=== PATIENT | male | born 1980 | race Caucasian/White ===

== ENCOUNTER → 2019-06-20 | Outpatient (CLI) | payer OTHER ==
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
== END | disposition home or self-care (01) ==
CPT/HCPCS: 99211

== ENCOUNTER → 2019-06-30 | Outpatient (CLI) | payer OTHER ==
--- NOTE | 2019-07-03 08:16 | MR ---
EXAMINATION TYPE: MR lumbar spine wo con DATE OF EXAM: 06/30/2019 COMPARISON: None at this institution. HISTORY: Lumbar radiculopathy, RLE pain/numbness per order. Pain for 6 months extending into both low er extremities per patient. TECHNIQUE: Multiplanar, multisequence imaging of the lumbar spine is performed without IV contrast. FINDINGS: Sagittal images of the lumbar spine show vertebral body heights and alignment to appear sat isfactory. There is disc desiccation with posterior annular tear L5-S1 level otherwise disc space hei ghts and hydration are maintained. The conus medullaris is normal in position and signal ending infe rior L1 level. There is small hemangiomas at S2 level sagittal image 8. Axial images show the T12-L1, L1-L2, L2-L3, and L3-L4 levels also appear within normal limits. Axial images at L4-L5 level shows mild facet degenerative changes bilaterally. Axial images at the L5-S1 level shows mild facet degenerative changes with central disc protrusion bu t spinal canal is preserved. Bilateral neural foramina are patent. No suspicious incidental retroperitoneal findings. IMPRESSION: Mild degenerative changes lower lumbar spine, note is made of annular tear and small cent ral disc protrusion L5-S1 level. No large disc herniation identified to account for patient's bilater al radiculopathy type symptoms however.
== END | disposition home or self-care (01) ==
LOC: RADMRIMAIN 14:47
PROVIDERS: ATTEND Anesthesiology
DX: M51.17 Intervertebral disc disorders with radiculopathy, lumbosacral region (principal); M47.26 Other spondylosis with radiculopathy, lumbar region
CPT/HCPCS: 72148

== ENCOUNTER → 2019-07-06 | Outpatient (CLI) | payer OTHER ==
[2019-07-06 14:10] VITALS: BP 115/72; PULSE 63; RESP 18
--- NOTE | 2019-07-06 19:07 | P.PAINPG ---
Subjective Progress Note Date: 07/06/19 This is a follow-up visit for this 39 years old male, with a chronic history of severe low back pain, with radiation to the posterior aspect of his thighs and calf,, patient came in for follow-up visit and to discuss the results of the MRI of the lumbar spine that was done recently, and MRI report was reviewed and it showed that patient had L4 5 and L5-S1 lumbar facet degeneration and he had central disc protrusion at L5-S1, patient denies any motor or sensory deficit, he is able to ambulate without difficulty, he denies any fever or night sweats, he denies any change in the bowel movement or urination, he continued to use baclofen 20 mg every 8 hours Neurontin 600 mg 3 times a day and ibuprofen 800 mg 3 times a day, prescription given by his primary care he denies any side effects from the medication, he doesn't show any sign of intoxication Objective - Vital Signs Vital signs: Vital Signs Temp Pulse 63 07/06/19 14:06 Resp 18 07/06/19 14:06 BP 115/72 07/06/19 14:06 Pulse Ox 98 07/06/19 14:06 Intake & Output 07/05/19 07/06/19 07/06/19 18:59 06:59 18:59 Weight 77.111 kg - Exam Physical Examinations : -Constitutiona : Cooperative , not in acute distress . -HEENT : nech : supple , no Lymphadenopathy , normal thyroid size . eyes : no ptosis , no icterus, no photophobia . - neurologic : Cranial nerve II to XII intact , no focal neurological deffecit . -psychatric : alert , oriented X 3 , appropriate affect , intact judgment and insight . -Lymphatic : no Lymphadenopathy . - musculoskeltal : Lumber spine moter stegnth lower extremities ,thigh and legs 5/5 Right side , 5/5 Left side deep tendon reflexes : normal Knee Jerk , normal ankle Jerk positive lumber facet Loading Test Range of motion of the lumbar spine Flexion 30 degrees, extension 10 degrees strait leg raising test , positive at 60 Fabere test positive RT , and positive LT . Sever tenderness over the Sacroiliac joint on the R and L sides MRI of the lumbar spine= L4 5 and L5-S1 facet joint degeneration and L5-S1 lumbar bulging disc disease , without any canal stenosis Assessment and Plan Plan: Assessment and plan= chronic low back pain secondary to lumbar spondylosis with lumbar facet arthropathy without myelopathy, and lumbar degenerative disc disease, the clinical picture, direct tumors that most of the pain is coming from the facetogenic component, for this reason we will schedule patient to have diagnostic medial branch block lumbar area , L3 , L4, L5 bilaterally (to target the facet joint at the L4 5 and L5-S1 ) procedure risk and benefits and alternatives discussed with the patient and he agreed with the preceding Time with Patient: Less than 30 PQRS Measure Charge Sheet Measure #130: Documentation of Current Meds in Medical Chart: Patient's medications documented in chart Measure #226: Tobacco Use: Screen & Cessation Intervention: Pt screened for tobacco use AND intervention given Measure #111: Pneumonia Vaccination: Pneumococcal vaccine NOT administered or previously given Measure #47: Advance Care Plan: Advance care planning discussed & documented, pt chose/unable to give Measure #412: Opioid Treatment Agreement: No documentation of signed opioid treatment agreement Measure #408: Opioid Therapy Follow-up Evaluation: Patient had NO f/u eval minimum every 3 months during opioid therapy Measure #317: Preventitive Care & Scrn High Bld Press & F/U: Normal blood pressure, f/u not required Measure #128: Body Mass Index (BMI) Screening & Follow-up: BMI documented within normal parameters Measure #131: Pain Assessment & Follow-up: Pain positive & plan documented, Follow-up scheduled Measure #431: Unhealthy Alcohol Use Preventative Care & Scrn: Patient not identified as an unhealthy alcohol user PQRS Narrative: Smoking Status Current every day smoker Blood Pressure 115/72 Pain Intensity [Bilateral 9 Lower Back] Scale Used Numeric (1 - 10) Hx Alcohol Use (MH) No Home Medications: Ambulatory Orders Amitriptyline HCl 10 mg PO BID 06/15/19 Atorvastatin [Lipitor] 10 mg PO DAILY 06/15/19 Baclofen [Lioresal] 20 mg PO TID 06/15/19 Beclomethasone Dipropionate [Qvar 80 mcg] 1 puff INHALATION DAILY 06/15/19 Cariprazine HCl [Vraylar] 6 mg PO DAILY 06/15/19 Cholecalciferol [Vitamin D3 (25 Mcg = 1000 Iu)] 1,000 unit PO DAILY 06/15/19 FLUoxetine HCL [PROzac] 20 mg PO DAILY 06/15/19 Gabapentin 600 mg PO TID 06/15/19 Ibuprofen 800 mg PO TID 06/15/19 Omeprazole [PriLOSEC] 20 mg PO AC-BRKFST 06/15/19 Umeclidinium [place] [Incruse Ellipta] 1 puff INHALATION DAILY 06/15/19 Controlled Substance Measures - Controlled Substance Measures Is patient prescribed a controlled substance at discharge?: No
== END | disposition home or self-care (01) ==
LOC: PNWHC3 13:56
PROVIDERS: ATTEND Specialist
DX: G89.29 Other chronic pain (principal); M51.36 Other intervertebral disc degeneration, lumbar region; M47.816 Spondylosis without myelopathy or radiculopathy, lumbar region; M46.96 Unspecified inflammatory spondylopathy, lumbar region; M51.27 Other intervertebral disc displacement, lumbosacral region; F17.200 Nicotine dependence, unspecified, uncomplicated; Z79.899 Other long term (current) drug therapy
CPT/HCPCS: 99211

== ENCOUNTER 2019-07-18 09:41 | Day surgery (SDC) | payer OTHER ==
[2019-07-13 14:42] VITALS: BMI 20.5
[~2019-07-18 09:41] MED LIST: LACTATED RINGERS 1,000 ML IV SCH
[2019-07-18 10:38] VITALS: RESP 16; TEMP 97.2
--- NOTE | 2019-07-18 11:43 | P.PCN ---
Date of Procedure: 07/18/19 Procedure(s) Performed: PREOPERATIVE DIAGNOSIS : 1- Lumbar spondylosis with Facet Arthropathy without myelopathy . 2- Lumber degenerative disc disease POSTOPERATIVE DIAGNOSIS: 1- Lumbar spondylosis with Facet Arthropathy without myelopathy . 2- Lumber degenerative disc disease PROCEDURE: Diagnostic bilateral L3 , L4 , and L5 medial branch block under fluoroscopy guidance(fluoroscopy images available in the radiology Department ) (To block the facet joint at L4 5 , and L5-S1 level ) ANESTHESIA: Local with Ropivacain 0.5 % 6 ml , moderate sedation with intravenous Versed 1 mg and Fentanyl 50 mcg. EBL: Minimal COMPLICATION: None. IV FLUIDS: 100 mL of normal saline. PROCEDURE INDICATION: Chronic low back pain secondary to Facet arthropathy unresponsive to conservative treatment. PROCEDURE DESCRIPTION: the patient was seen and identified in the preop holding area , risks and benefits and possible complications of the procedure and alternative were discussed with the patient, and the patient agreed to proceed with the procedure and signed the consent IV was started and vital signs monitored during the procedure and fluoroscopy was used to maximize the benefit and accuracy of the needle placement, and sedation was given to decrease patient anxiety, patient was taken to the procedure room and placed in prone position vital signs monitored in the back prepped with chlorhexidine X3 then under strict sterile technique using a right oblique fluoroscopy ,the junction of the transverse process and the superior articulating process of the right L3 , L4 , and L5 vertebra which corresponding to the fluoroscopy image of the eye of the Jermaine dog on the block side for the medial branches and subsequently , after local infiltration of skin and subcu tissuies with Ropivacaine 0.5 % , one mL at each level ,then 22-gauge Quincke-type needles , 3 needle was used , each one of them placed at the junction of the base of the transverse process and the superior articular process at the appropriate level, and the needle was advanced until the periosteum contacted, needle placement confirmed with AP oblique and lateral view and after appropriate needle placement confirmed, and after negative aspiration for heme and CSF and there was no paresthesia 1-1/2 mL of Ropivacaine 0.5% mixed with 20 mg Depo-Medrol , then half mL injected at each level after negative aspiration the needle subsequently removed and the same procedure repeated for the left side at left side at L3 , L4 , and L5 At the end of the procedure and the needles removed and a bandage applied after the skin was cleaned the cleaning solution patient taken to recovery room in stable condition and monitors in the recovery room for 20-30 minutes and discharged home in stable condition after discharge criteria met and patient will follow up with the pain clinic in 2-4 weeks
[2019-07-18] MEDS ORDERED: LACTATED RINGERS 1,000 ML IV ONE (11:45)
--- NOTE | 2019-07-18 11:56 | FL ---
EXAMINATION TYPE: FL guided pain mgmt statistic DATE OF EXAM: 07/18/2019 CLINICAL HISTORY: Low back pain. TECHNIQUE: Fluoroscopy. COMPARISON: None. FINDINGS: Fluoroscopic guidance was provided during pain relief procedure performed by Dr. Anaya . A total of 9 seconds of fluoroscopic time was utilized during the procedure and 4 spot images are acquired. Images acquired shows needle localization at several levels in the bilateral lower lumbar spine. IMPRESSION: As Above.
[2019-07-18 12:05] VITALS: BP 106/61; PULSE 78
== END 2019-07-18 12:15 | disposition home or self-care (01) ==
LOC: ORPAIN 09:41
PROVIDERS: ATTEND Specialist
DX: G89.29 Other chronic pain (principal); M47.816 Spondylosis without myelopathy or radiculopathy, lumbar region; M51.36 Other intervertebral disc degeneration, lumbar region; M51.16 Intervertebral disc disorders with radiculopathy, lumbar region; F17.200 Nicotine dependence, unspecified, uncomplicated; Z79.51 Long term (current) use of inhaled steroids; Z79.1 Long term (current) use of non-steroidal anti-inflammatories (NSAID); Z79.899 Other long term (current) drug therapy
CPT/HCPCS: 64493; 64494; J2250; J1030; J3010

== ENCOUNTER 2019-08-01 07:18 | Day surgery (SDC) | payer OTHER ==
[2019-07-28 13:07] VITALS: BMI 20.5
[2019-08-01 08:15] VITALS: TEMP 98.1
--- NOTE | 2019-08-01 09:12 | P.PCN ---
Date of Procedure: 08/01/19 Procedure(s) Performed: PREOPERATIVE DIAGNOSIS : 1- Lumbar spondylosis with Facet Arthropathy without myelopathy . 2- Lumber degenerative disc disease POSTOPERATIVE DIAGNOSIS: 1- Lumbar spondylosis with Facet Arthropathy without myelopathy . 2- Lumber degenerative disc disease PROCEDURE: Diagnostic bilateral L3 , L4 , and L5 medial branch block under fluoroscopy guidance(fluoroscopy images available in the radiology Department ) #2nd (To block the facet joint at L4- 5 , and L5-S1 level ) ANESTHESIA: Local with Ropivacain 0.5 % 6 ml , moderate sedation with intravenous Versed 1 mg and Fentanyl 50 mcg. EBL: Minimal COMPLICATION: None. IV FLUIDS: 100 mL of normal saline. PROCEDURE INDICATION: Chronic low back pain secondary to Facet arthropathy unresponsive to conservative treatment. PROCEDURE DESCRIPTION: the patient was seen and identified in the preop holding area , risks and benefits and possible complications of the procedure and alternative were discussed with the patient, and the patient agreed to proceed with the procedure and signed the consent IV was started and vital signs monitored during the procedure and fluoroscopy was used to maximize the benefit and accuracy of the needle placement, and sedation was given to decrease patient anxiety, patient was taken to the procedure room and placed in prone position vital signs monitored in the back prepped with chlorhexidine X3 then under strict sterile technique using a right oblique fluoroscopy ,the junction of the transverse process and the superior articulating process of the right L3 , L4 , and L5 vertebra which corresponding to the fluoroscopy image of the eye of the Jermaine dog on the block side for the medial branches and subsequently , after local infiltration of skin and subcu tissuies with Ropivacaine 0.5 % , one mL at each level ,then 25-gauge Quincke-type needles , 3 needle was used , each one of them placed at the junction of the base of the transverse process and the superior articular process at the appropriate level, and the needle was advanced until the periosteum contacted, needle placement confirmed with AP oblique and lateral view and after appropriate needle placement confirmed, and after negative aspiration for heme and CSF and there was no paresthesia 1-1/2 mL of Ropivacaine 0.5% mixed with 20 mg Depo-Medrol , then half mL injected at each level after negative aspiration the needle subsequently removed and the same procedure repeated for the left side at left side at L3 , L4 , and L5 At the end of the procedure and the needles removed and a bandage applied after the skin was cleaned the cleaning solution patient taken to recovery room in stable condition and monitors in the recovery room for 20-30 minutes and discharged home in stable condition after discharge criteria met and patient will follow up with the pain clinic in 2-4 weeks
[2019-08-01 09:21] VITALS: RESP 18
[2019-08-01] MEDS ORDERED: IV FLUID CONTINUATION 425 ML IV ONE (09:22)
[2019-08-01 09:36] VITALS: BP 109/75; PULSE 70
--- NOTE | 2019-08-01 13:01 | FL ---
EXAMINATION TYPE: FL guided pain mgmt statistic DATE OF EXAM: 08/01/2019 FLUOROSCOPY Fluoroscopy time of 9 seconds was used during bilateral needle placement for lumbar spine pain manage ment. 4 image/s document/s the procedure.
== END 2019-08-01 09:50 | disposition home or self-care (01) ==
LOC: ORPAIN 07:18
PROVIDERS: ATTEND Specialist
DX: G89.29 Other chronic pain (principal); M47.816 Spondylosis without myelopathy or radiculopathy, lumbar region; M51.36 Other intervertebral disc degeneration, lumbar region
CPT/HCPCS: 64493; 64494; J2250; J1030; J3010; 99152

== ENCOUNTER → 2019-08-15 | Outpatient (CLI) | payer OTHER ==
[2019-08-15 13:44] VITALS: BP 127/79; PULSE 63; RESP 16
--- NOTE | 2019-08-15 14:09 | P.PN ---
Subjective Progress Note Date: 08/15/19 This is a 39-year-old gentleman with history of chronic lower back pain which did not respond to 2 lumbar medial branch blocks. His pain radiates down his left leg to the left foot with numbness on the bottom of his left foot. He takes and Neurontin 600 mg once a day. His pain has been increasing lately. Patient denies new-onset weakness, bowel/bladder incontinence, or any other signs or symptoms of cauda equina syndrome. There are no signs of acute intoxication, and no indications of medication diversion or overuse. In addition to above, 13-point review of systems is also negative for chest pain, shortness of breath, changes in vision, changes in hearing, new onset weakness, abdominal pain, diarrhea, extreme fatigue, malaise, fever, skin changes, homicidal or suicidal ideation, or bowel or bladder incontinence. Vital Signs: Reviewed in EMR Gen: AAOx3, NAD HEENT: PERRLA,hearing grossly normal Pulm: resp unlabored Heart: Regular Neck: supple, trachea midline Neuro exam of the lower extremities: Within normal limits Straight leg raising test: Negative on the left side Fran's test: Range of motion of the lumbar spine: Facet loading test: Tenderness in the paravertebral musculature: Positive tenderness in the lumbar area Neuro: CN II-XII grossly intact, Imaging: Reviewed in EMR/chart Assessment: Left lumbar radiculopathy Lumbar spondylosis without myelopathy Plan: 1. Explanation: Opioid and psychological risk scores were reviewed. Diagnoses, prognoses, and multiple treatment options including but not limited to physical therapy, interventional therapies, adjuvant medical therapies, narcotic medication therapies, and surgery were discussed with the patient and all questions were answered to the patient's satisfaction. 2. Opioid agreement: No opioids were prescribed 3. Counseling: The patient was counseled extensively on SMOKING CESSATION, BODY MASS INDEX, EXERCISE. Specifically, the patient was instructed regarding the importance of smoking cessation, obesity, and exercise in the context of both chronic pain and overall health. 4. Procedures: Scheduled for lumbar epidural steroid injection under fluoroscopic guidance at the L4 5 level in the left paramedian approach 5. Consultations: None 6. Investigations: None 7. Medications: Increase Neurontin to 600 mg twice a day. I'll give him prescription for 30 pills and then his primary care physician will continue with that. 8. Disposition: 9. Maps were reviewed and were appropriate. Objective - Vital Signs Vital signs: Vital Signs Temp Pulse 63 08/15/19 13:37 Resp 16 08/15/19 13:37 BP 127/79 08/15/19 13:37 Pulse Ox
== END ==
LOC: PNWHC3 12:55
PROVIDERS: ATTEND Anesthesiology
DX: M47.26 Other spondylosis with radiculopathy, lumbar region (principal); Z79.899 Other long term (current) drug therapy
CPT/HCPCS: 99211

== ENCOUNTER 2019-08-22 09:33 | Day surgery (SDC) | payer OTHER ==
[2019-08-17 15:09] VITALS: BMI 20.5
[2019-08-22 10:09] VITALS: RESP 16; TEMP 97.7
--- NOTE | 2019-08-22 11:31 | P.PCN ---
Date of Procedure: 08/22/19 Procedure(s) Performed: PREOPERATIVE DIAGNOSIS: 1- Lumbar radiculopathy 2-Lumbar spondylosis with Facet arthropathy without myelopathy POSTOPERATIVE DIAGNOSIS: 1-Lumber radiculopathy 2-Lumbar spondylosis with Facet arthropathy without myelopathy PROCEDURE 1. Lumbar epidural steroid injection under fluoroscopic guidance at the L4-5 level. (left paramedian ) (Fluoroscopy imaging was available in radiology department) 2. Lumbar epidurogram. ANESTHESIA: Local with 1% lidocaine 3 ml and , moderate sedation with intravenous Versed 2 mg ,and fentanyle 50 Mcg EBL: Minimal PROCEDURE INDICATION: The patient with low back pain and radiculitis symptoms unresponsive to conservative treatment. Fluoroscopy was used to optimize visualization of the needle placement and to maximize safety. PROCEDURE DESCRIPTION / TECHNIQUE: The patient was seen and identified in the preoperative area. Risks, benefits, complications including but not limited to infections ,bleeding ,allergic reaction to the medications ,nerve damage and not complete pain releife , and alternatives were discussed with the patient. The patient agreed to proceed with the procedure and signed the consent. IV was started, and vital signs were stable. Patient was taken to the OR and time out was completed. The patient was placed in the prone position on procedure table and a pillow was placed under the abdomen to reduce lumbar lordosis. The lumbosacral area was prepped and draped in the usual sterile fashion.ere closely monitored during the procedure. Conscious sedation was used during the procedure to decrease patients anxiety. Vital signs was monitered during the entire procedure. Using anterior-posterior fluoroscopy, the L4-5 interlaminar space was identified and the skin over this site was marked and then infiltrated with 1% lidocaine subcutaneously. Subsequently, a 20-gauge Tuohy epidural needle was inserted and advanced toward the epidural space using the ``Loss of resistance technique and guided by AP and lateral fluoroscopy. The correct needle position in the epidural space was verified with the injection of 2 mL of the water soluble contrast dye Isovue 200 contrast and observing an excellent epidurogram with the epidural spread of the dye, after negative aspiration for blood and CSF and in the absence of paresthesias. Again after negative aspiration, a 6 ml mixture containing 80 mg of Depo-medrol , and 2 ml of preservative free Normal Saline, and 2 ml of preservative free lidocaine 1% solution was injected and a washout of epidurogram was seen. Needle was withdrawn intact, skin was cleansed, and bandages were applied. COMPLICATIONS: None DISPOSITION / PLANS: The patient was placed in a supine position and transferred to the recovery area in a stable condition for observation. There was no evidence of lower extremity motor or sensory deficit after the procedure. Patient was discharged from the recovery room after meeting discharge criteria. Home discharge instructions were given to the patient by the staff. The patient was reexamined prior to discharge. The patient will schedule a follow up in the clinic in 2-4 weeks.
[2019-08-22] MEDS ORDERED: [UNRECOGNIZED DRUG - REMARK] IV ONE (11:37)
[2019-08-22 12:03] VITALS: BP 126/71; PULSE 79
--- NOTE | 2019-08-22 12:47 | FL ---
EXAMINATION TYPE: FL guided pain mgmt statistic DATE OF EXAM: 08/22/2019 CLINICAL HISTORY: Low back pain. TECHNIQUE: Fluoroscopy. COMPARISON: None. FINDINGS: Fluoroscopic guidance was provided during pain relief procedure performed by Dr. Anaya . A total of 1 seconds of fluoroscopic time was utilized during the procedure and 1 spot image was a cquired. Images acquired shows needle localization over the lumbar spine. IMPRESSION: As Above.
== END 2019-08-22 12:15 | disposition home or self-care (01) ==
LOC: ORPAIN 09:33
PROVIDERS: ATTEND Specialist
DX: M47.26 Other spondylosis with radiculopathy, lumbar region (principal); Z88.4 Allergy status to anesthetic agent
CPT/HCPCS: 62323; J2250; J1030; J3010; Q9966

== ENCOUNTER 2019-09-06 07:30 | Day surgery (SDC) | payer OTHER ==
[2019-09-02 10:05] VITALS: BMI 21.4
[2019-09-06 08:31] VITALS: RESP 16; TEMP 97.6
--- NOTE | 2019-09-06 09:44 | P.PCN ---
Date of Procedure: 09/06/19 Procedure(s) Performed: PREOPERATIVE DIAGNOSIS: 1- Lumbar radiculopathy 2-Lumbar spondylosis with Facet arthropathy without myelopathy POSTOPERATIVE DIAGNOSIS: 1-Lumber radiculopathy 2-Lumbar spondylosis with Facet arthropathy without myelopathy PROCEDURE 1. Lumbar epidural steroid injection under fluoroscopic guidance at the L4-5 level. (left paramedian ) (Fluoroscopy imaging was available in radiology department) 2. Lumbar epidurogram. ANESTHESIA: Local with 1% lidocaine 3 ml and , moderate sedation with intravenous Versed 2 mg ,and fentanyle 50 Mcg EBL: Minimal PROCEDURE INDICATION: The patient with low back pain and radiculitis symptoms unresponsive to conservative treatment. Fluoroscopy was used to optimize visualization of the needle placement and to maximize safety. PROCEDURE DESCRIPTION / TECHNIQUE: The patient was seen and identified in the preoperative area. Risks, benefits, complications including but not limited to infections ,bleeding ,allergic reaction to the medications ,nerve damage and not complete pain releife , and alternatives were discussed with the patient. The patient agreed to proceed with the procedure and signed the consent. IV was started, and vital signs were stable. Patient was taken to the OR and time out was completed. The patient was placed in the prone position on procedure table and a pillow was placed under the abdomen to reduce lumbar lordosis. The lumbosacral area was prepped and draped in the usual sterile fashion.ere closely monitored during the procedure. Conscious sedation was used during the procedure to decrease patients anxiety. Vital signs was monitered during the entire procedure. Using anterior-posterior fluoroscopy, the L4-5 interlaminar space was identified and the skin over this site was marked and then infiltrated with 1% lidocaine subcutaneously. Subsequently, a 20-gauge Tuohy epidural needle was inserted and advanced toward the epidural space using the ``Loss of resistance technique and guided by AP and lateral fluoroscopy. The correct needle position in the epidural space was verified with the injection of 2 mL of the water soluble contrast dye Isovue 200 contrast and observing an excellent epidurogram with the epidural spread of the dye, after negative aspiration for blood and CSF and in the absence of paresthesias. Again after negative aspiration, a 6 ml mixture containing 80 mg of Depo-medrol , and 2 ml of preservative free Normal Saline, and 2 ml of preservative free lidocaine 1% solution was injected and a washout of epidurogram was seen. Needle was withdrawn intact, skin was cleansed, and bandages were applied. COMPLICATIONS: None DISPOSITION / PLANS: The patient was placed in a supine position and transferred to the recovery area in a stable condition for observation. There was no evidence of lower extremity motor or sensory deficit after the procedure. Patient was discharged from the recovery room after meeting discharge criteria. Home discharge instructions were given to the patient by the staff. The patient was reexamined prior to discharge. The patient will schedule a follow up in the clinic in 2-4 weeks.
--- NOTE | 2019-09-06 10:04 | FL ---
EXAMINATION TYPE: FL guided pain mgmt statistic DATE OF EXAM: 09/06/2019 CLINICAL HISTORY: Low back pain. TECHNIQUE: Fluoroscopy. COMPARISON: None. FINDINGS: Fluoroscopic guidance was provided during pain relief procedure performed by Dr. Anaya . A total of 1 seconds of fluoroscopic time was utilized during the procedure and 1 spot image was a cquired. Images acquired shows needle localization of the lumbar spine. IMPRESSION: As Above.
[2019-09-06 10:12] VITALS: BP 101/63; PULSE 79
[2019-09-06] MEDS ORDERED: IV FLUID CONTINUATION 1,000 ML IV ONE (10:12)
== END 2019-09-06 10:37 | disposition home or self-care (01) ==
LOC: ORPAIN 07:30
PROVIDERS: ATTEND Specialist
DX: M47.26 Other spondylosis with radiculopathy, lumbar region (principal); J44.9 Chronic obstructive pulmonary disease, unspecified; Z88.4 Allergy status to anesthetic agent
CPT/HCPCS: 62323; J2250; J1030; J3010; Q9966

== ENCOUNTER → 2019-09-21 | Outpatient (CLI) | payer OTHER ==
[2019-09-21 12:13] VITALS: BP 124/80; RESP 18
[2019-09-21 12:37] VITALS: PULSE 80
--- NOTE | 2019-09-22 10:22 | P.PAINPG ---
Subjective Progress Note Date: 09/21/19 This is a follow-up visit for this 39 years old male, with a chronic history of severe low back pain, with radiation to the posterior aspect of his thighs and calf, and MRI report was reviewed and it showed that patient had L4 5 and L5-S1 lumbar facet degeneration and he had central disc protrusion at L5-S1, patient denies any motor or sensory deficit, he is able to ambulate without difficulty, he denies any fever or night sweats, he denies any change in the bowel movement or urination, he continued to use baclofen 20 mg every 8 hours Neurontin 600 mg 3 times a day and ibuprofen 800 mg 3 times a day, prescription given by his primary care he denies any side effects from the medication, he doesn't show any sign of intoxication, we have done lumbar epidural steroid injections 2 patient had negative response to it and also we have done diagnostic medial branch block lumbar area ,and he had negative response to the block for this reason we did not proceed with the radiofrequency ablation of the medial branch lumbar area Objective - Vital Signs Vital signs: Vital Signs Temp Pulse 80 09/21/19 12:08 Resp 18 09/21/19 12:08 BP 124/80 09/21/19 12:08 Pulse Ox 100 09/21/19 12:08 Intake & Output 09/21/19 09/22/19 09/22/19 18:59 06:59 18:59 Weight 77.111 kg - Exam -Constitutiona : Cooperative , not in acute distress . -HEENT : nech : supple , no Lymphadenopathy , normal thyroid size . eyes : no ptosis , no icterus, no photophobia . - neurologic : Cranial nerve II to XII intact , no focal neurological deffecit . -psychatric : alert , oriented X 3 , appropriate affect , intact judgment and insight . -Lymphatic : no Lymphadenopathy . - musculoskeltal : Lumber spine moter stegnth lower extremities ,thigh and legs 5/5 Right side , 5/5 Left side deep tendon reflexes : normal Knee Jerk , normal ankle Jerk positive lumber facet Loading Test Range of motion of the lumbar spine Flexion 30 degrees, extension 10 degrees strait leg raising test , positive at 60 Fabere test positive RT , and positive LT . tenderness over the Sacroiliac joint on the R and L sides MRI of the lumbar spine= L4 5 and L5-S1 facet joint degeneration and L5-S1 lumbar bulging disc disease , without any canal stenosis Assessment and Plan Plan: Assessment and plan= chronic severe low back pain secondary to lumbar spondylosis with lumbar facet arthropathy, lumbar degenerative disc disease Patient had negative response to interventional pain management procedures, he had no benefit from lumbar epidural steroid injection And he had negative response to diagnostic medial branch block lumbar area, Patient currently on Neurontin 600 mg twice a day and baclofen 20 mg 3 times a day and Motrin 800 mg 3 times a day when nece ssary He denies any side effect of the medication and is getting prescriptions from his primary care. Patient will be referred to a spine surgeon for evaluation, also patient referred for physical therapy for evaluation and treatment Patient will follow up in the pain clinic when necessary PQRS Measure Charge Sheet Measure #130: Documentation of Current Meds in Medical Chart: Patient's medications documented in chart Measure #226: Tobacco Use: Screen & Cessation Intervention: Pt screened for tobacco use AND intervention given Measure #111: Pneumonia Vaccination: Pneumococcal vaccine NOT administered or previously given Measure #47: Advance Care Plan: Advance care planning discussed & documented, pt chose/unable to give Measure #412: Opioid Treatment Agreement: No documentation of signed opioid treatment agreement Measure #408: Opioid Therapy Follow-up Evaluation: Patient had NO f/u eval minimum every 3 months during opioid therapy Measure #317: Preventitive Care & Scrn High Bld Press & F/U: Normal blood pressure, f/u not required Measure #128: Body Mass Index (BMI) Screening & Follow-up: BMI documented within normal parameters Measure #131: Pain Assessment & Follow-up: Pain positive & plan documented, Follow-up scheduled Measure #431: Unhealthy Alcohol Use Preventative Care & Scrn: Patient not identified as an unhealthy alcohol user PQRS Narrative: Smoking Status Current every day smoker Blood Pressure 124/80 Pain Intensity [Back] 8 Scale Used Numeric (1 - 10) Hx Alcohol Use (MH) No Home Medications: Ambulatory Orders Amitriptyline HCl 10 mg PO BID 06/15/19 Atorvastatin [Lipitor] 10 mg PO 1800 06/15/19 Baclofen [Lioresal] 20 mg PO TID 06/15/19 Beclomethasone Dipropionate [Qvar 80 mcg] 1 puff INHALATION DAILY 06/15/19 Cariprazine HCl [Vraylar] 6 mg PO DAILY 06/15/19 Cholecalciferol [Vitamin D3 (25 Mcg = 1000 Iu)] 1,000 unit PO DAILY 06/15/19 FLUoxetine HCL [PROzac] 40 mg PO DAILY 06/15/19 Gabapentin 600 mg PO BID 06/15/19 Ibuprofen 800 mg PO TID 06/15/19 Omeprazole [PriLOSEC] 20 mg PO [id number] 06/15/19 Umeclidinium [place] [Incruse Ellipta] 1 puff INHALATION DAILY 06/15/19 Controlled Substance Measures - Controlled Substance Measures Is patient prescribed a controlled substance at discharge?: No
== END | disposition home or self-care (01) ==
LOC: PNWHC3 12:02
PROVIDERS: ATTEND Specialist
DX: G89.29 Other chronic pain (principal); M51.26 Other intervertebral disc displacement, lumbar region; M51.36 Other intervertebral disc degeneration, lumbar region; M47.816 Spondylosis without myelopathy or radiculopathy, lumbar region; M46.96 Unspecified inflammatory spondylopathy, lumbar region; F17.200 Nicotine dependence, unspecified, uncomplicated; Z79.1 Long term (current) use of non-steroidal anti-inflammatories (NSAID); Z79.899 Other long term (current) drug therapy
CPT/HCPCS: 99211